=== PATIENT | female | born 2000 | race Caucasian/White ===

== ENCOUNTER 2020-02-23 04:16 | Outpatient (CLI) | payer BC, SELFPAY ==
[2020-02-23 07:34] LABS: HCT 40.4 % (36.0-46.0); HGB 13.5 g/dL (11.2-15.7); MCH 30.6 pg (27.0-33.0); MCHC 33.4 % (32.0-36.0); MCV 91.6 fL (80-95); MPV 10.2 fL (8.0-11.0); Platelet Count 265 10^3/uL (130-400); RBC 4.41 10^6/uL (3.93-5.22); RDW-SD 40.6 fL; WBC 6.77 10^3/uL (4.4-10.8)
[2020-02-23 08:46] LABS: ALT 38 U/L (14-59); AST 16 U/L (15-37); Albumin 4.2 g/dL (3.4-5.0); Alkaline Phosphatase 55 U/L (46-116); Anion Gap 9.1 mmol/L (3-11); BUN 8 mg/dL (7-18); Bilirubin, Total 0.5 mg/dL (0.2-1.0); CO2 25.9 mmol/L (21.0-32.0); CREATININE 0.64 mg/dL (0.55-1.02); Calcium 9.2 mg/dL (8.5-10.1); Calculated LDL 107 mg/dL (<100); Chloride 106 mmol/L (98-107); Cholesterol 191 mg/dL (<200); Glucose 86 mg/dL (74-106); HDL Cholesterol 58 mg/dL (40-60); Potassium 4.1 mmol/L (3.5-5.1); Sodium 141 mmol/L (136-145); TSH (W/Ref FT4) 4.57 uIU/mL (0.36-3.74); Total Protein 7.1 g/dL (6.4-8.2); Triglyceride 134 mg/dL (<150)
[2020-02-23 09:29] LABS: FREE T4 0.95 ng/dL (0.76-1.46)
== END 2020-02-23 04:36 ==
PROVIDERS: PCP Student in an Organized Health Care Education/Training Program; Visit Provider Student in an Organized Health Care Education/Training Program
DX: N94.6 Dysmenorrhea, unspecified (principal); R53.83 Other fatigue; F34.1 Dysthymic disorder; Z79.3 Long term (current) use of hormonal contraceptives; Z13.220 Encounter for screening for lipoid disorders; Z13.1 Encounter for screening for diabetes mellitus; R35.8 Other polyuria; L02.419 Cutaneous abscess of limb, unspecified; E86.0 Dehydration
CPT/HCPCS: 36415; 80053; 80061; 85027; 84439; 84443

== ENCOUNTER 2021-03-19 16:41 | Outpatient (REF) | payer BC, SELFPAY ==
--- NOTE | 2021-03-19 15:00 | PAPFT_PTH ---
PATIENT: Norma Gregory LOC: [facility] U#:[id number] AGE/SX: 20/F ROOM: RE03/19/[address]: NONA Blair : 2000 BED: DIS: 03/19/2021 SPEC #: [id number] RECD: 03/19/21 18:30 STATUS: RICHIE REQ #: [id number] ROSE: 03/19/21 15:[address]: Kusum Caruso DEPT: [facility] Cytology RECD BY: Charisma Yañez ENTERED: 03/19/21 18:30 SP TYPE: PAPFT OTHR DR: Nani Serna, DO Tissues: 1 - CX/ENDOCX FOR PAP SMEARS Procedures: PAP THIN PREP/[facility] Screening Comments: [id number]
== END 2021-03-19 16:42 | disposition home or self-care (01) ==
LOC: LBN 16:41
PROVIDERS: PCP Student in an Organized Health Care Education/Training Program; Visit Provider Nurse Practitioner Family
DX: Z12.4 Encounter for screening for malignant neoplasm of cervix (principal); R87.610 Atypical squamous cells of undetermined significance on cytologic smear of cervix (ASC-US)
CPT/HCPCS: 88142

== ENCOUNTER 2021-03-27 02:40 | Outpatient (CLI) | payer BC, SELFPAY ==
[2021-03-27 13:43] LABS: TSH (W/Ref FT4) 1.81 uIU/mL (0.36-3.74)
== END 2021-03-27 02:41 | disposition home or self-care (01) ==
LOC: LBO 02:40
PROVIDERS: PCP Student in an Organized Health Care Education/Training Program; Visit Provider Nurse Practitioner Family
DX: F34.1 Dysthymic disorder; R79.89 Other specified abnormal findings of blood chemistry
CPT/HCPCS: 36415; 84443

== ENCOUNTER 2022-05-20 14:50 | Outpatient (REF) | payer BC, SELFPAY ==
--- NOTE | 2022-05-20 13:00 | PAPFT_PTH ---
PATIENT: Norma Gregory LOC: [facility] U#:[id number] AGE/SX: 21/F ROOM: RE05/20/[address]: Monserrat Gray NP : 2000 BED: DIS: 05/20/2022 SPEC #: [id number] RECD: 05/20/22 15:53 STATUS: RICHIE REQ #: [id number] ROSE: 05/20/22 13:[address]: Monserrat Gray NP DEPT: [facility] Cytology RECD BY: Yamilet Zabala ENTERED: 05/20/22 15:53 SP TYPE: PAPFT OTHR DR: Nani Serna, DO Tissues: 1 - CX/ENDOCX FOR PAP SMEARS Procedures: PAP THIN PREP/[facility] Screening Comments: [id number]
== END 2022-05-20 14:51 | disposition home or self-care (01) ==
LOC: LBN 14:50
PROVIDERS: PCP Student in an Organized Health Care Education/Training Program; Visit Provider Nurse Practitioner Women's Health
DX: Z12.4 Encounter for screening for malignant neoplasm of cervix (principal)
CPT/HCPCS: 88142

== ENCOUNTER 2023-10-16 01:17 | Outpatient (CLI) | payer BC, SELFPAY ==
[2023-10-16 12:42] LABS: HCT 40.6 % (36.0-46.0); HGB 13.3 g/dL (11.2-15.7); MCH 30.7 pg (27.0-33.0); MCHC 32.8 % (32.0-36.0); MCV 94 fL (80-95); MPV 10.9 fL (8.0-11.0); Platelet Count 261 10^3/uL (130-400); RBC 4.33 10^6/uL (3.93-5.22); RDW 12.4 % (11.7-14.6); RDW-SD 43.1 fL; WBC 4.77 10^3/uL (4.4-10.8)
[2023-10-16 13:16] LABS: Anion Gap 9.1 mmol/L (3-11); BUN 8 mg/dL (7-18); CO2 26.9 mmol/L (21.0-32.0); CREATININE 0.7 mg/dL (0.55-1.02); Calcium 8.8 mg/dL (8.5-10.1); Chloride 108 mmol/L (98-107); Estimated GFR 123.78 (mL/min/1.73m2); Glucose 82 mg/dL (74-106); Potassium 3.9 mmol/L (3.5-5.1); Sodium 144 mmol/L (136-145)
== END 2023-10-16 01:18 | disposition home or self-care (01) ==
LOC: LBO 01:17
PROVIDERS: Absent Provider Student in an Organized Health Care Education/Training Program; PCP Student in an Organized Health Care Education/Training Program; Referring Provider Student in an Organized Health Care Education/Training Program; Visit Provider Student in an Organized Health Care Education/Training Program
DX: Z91.89 Other specified personal risk factors, not elsewhere classified (principal); Z00.00 Encounter for general adult medical examination without abnormal findings; Z13.220 Encounter for screening for lipoid disorders
CPT/HCPCS: 36415; 80048; 85027; 83735